=== PATIENT | female | born 1970 | race Caucasian/White ===

== ENCOUNTER 2017-01-06 15:09 | Emergency (ER) | payer MEDICARE ==
[2013-04-30 09:34] VITALS: BMI 36.3
[~2017-01-06 15:09] MED LIST: DUONEB 2.5-0.5 M3 ML UPD; DURAGESIC1 PATCH .1; FLEXERIL10 MG PO; LISINOPRIL10 MG GT; MOBIC7.5 MG PO; NEURONTIN 300300 MG PO; NORCO 10/325 TA1 TA1 PO; PROZAC40 MG PO; SEROQUEL25 MG PO; SYMBICORT 16010.2 GM INH; VALIUM 2 MG TAB2 MG; VENTOLIN HFA18 GM INH; VESICARE10 MG PO; WELLBUTRIN75 MG PO
[2017-01-06 16:30] LABS: BASOPHILS 0.3 % (0-2); EOSINOPHILS 3.7 % (0-7); HEMATOCRIT 41.5 % (36.0-48.0); HEMOGLOBIN 13.4 g/dL (12-16); IMMATURE GRANULOCYTES 0.2 % (0-5); LYMPHOCYTES 31.2 % (15-50); MCH 28.9 pg (26.0-34.0); MCHC 32.3 g/dL (31.0-37.0); MCV 89.4 fL (80.0-100.0); MEAN PLATELET VOLUME 11.1 fL (7.4-10.4); MONOCYTES 5.1 % (2-11); NEUTROPHILS 59.5 % (40-80); PLATELET COUNT 370 10x3/uL (130-400); RBC 4.64 10x6/uL (4.00-5.40); RDW 13.3 % (11.5-14.5); WBC 8.8 10x3/uL (4.8-10.8)
[2017-01-06 16:37] LABS: HCG URINE NEGATIVE (NEGATIVE)
[2017-01-06 16:44] LABS: ALBUMIN 3.5 g/dL (3.4-5.0); BILIRUBIN - TOTAL 0.33 mg/dL (0.2-1.3); CALCIUM 9.3 mg/dL (8.5-10.1); CARBON DIOXIDE 31.8 mmol/L (21.0-32.0); POTASSIUM - SERUM 3.8 mmol/L (3.5-5.1); PROTEIN - SERUM 7.6 g/dL (6.4-8.2)
[2017-01-06 16:46] LABS: APPEARANCE CLEAR (CLEAR); BILIRUBIN NEGATIVE (NEGATIVE); COLOR YELLOW (YELLOW); GLUCOSE NEGATIVE (NEGATIVE); KETONE NEGATIVE (NEGATIVE); LEUKOCYTE ESTERASE TRACE (NEGATIVE); NITRITE NEGATIVE (NEGATIVE); PROTEIN NEGATIVE (NEGATIVE); SPECIFIC GRAVITY 1.015 (1.005-1.020); UROBILINOGEN NORMAL (NORMAL)
[2017-01-06 16:47] LABS: BACTERIA FEW /hpf (NONE SEEN); EPITHELIAL CELLS 0-5 /hpf (0-5); MUCUS <1+ /lpf (NONE SEEN); RED CELLS - URINE NONE SEEN /hpf (0-5); WHITE CELLS - URINE 0-5 /hpf (0-5)
== END 2017-01-06 19:30 | disposition home or self-care (01) ==
LOC: D.ER 15:09
PROVIDERS: Nurse Practitioner Family
DX: R10.9 Unspecified abdominal pain (principal); R11.10 Vomiting, unspecified; K58.9 Irritable bowel syndrome, unspecified; F17.200 Nicotine dependence, unspecified, uncomplicated; J45.909 Unspecified asthma, uncomplicated; G60.0 Hereditary motor and sensory neuropathy; J44.9 Chronic obstructive pulmonary disease, unspecified; K21.9 Gastro-esophageal reflux disease without esophagitis

== ENCOUNTER 2017-04-06 11:51 | Emergency (ER) | payer MEDICARE ==
[2013-04-30 09:34] VITALS: BMI 36.3
== END 2017-04-06 14:35 | disposition home or self-care (01) ==
LOC: D.ER 11:51
DX: S69.91XA Unspecified injury of right wrist, hand and finger(s), initial encounter (principal); W19.XXXA Unspecified fall, initial encounter; Y93.89 Activity, other specified; Y92.019 Unspecified place in single-family (private) house as the place of occurrence of the external cause; J45.909 Unspecified asthma, uncomplicated; G60.0 Hereditary motor and sensory neuropathy; J44.9 Chronic obstructive pulmonary disease, unspecified; K21.9 Gastro-esophageal reflux disease without esophagitis; F17.200 Nicotine dependence, unspecified, uncomplicated

== ENCOUNTER 2019-07-17 13:39 | Emergency (ER) | payer MEDICARE ==
[~2019-07-17] VITALS: Ht 154.9 cm; Wt 68.2 kg
[2019-07-17 14:04] VITALS: BP 151/82; Ht 154.9 cm; Wt 68.2 kg
[2019-07-17] MEDS ORDERED: ULTRAM50 MG PO (15:47)
== END 2019-07-17 17:00 | disposition home or self-care (01) ==
LOC: D.ER 13:39
DX: S93.401A Sprain of unspecified ligament of right ankle, initial encounter (principal); X58.XXXA Exposure to other specified factors, initial encounter

== ENCOUNTER 2021-01-15 15:08 | Emergency (ER) | payer OTHER, MEDICARE ==
[~2021-01-15] VITALS: Ht 154.9 cm; Wt 75.0 kg
[~2021-01-15 15:08] MED LIST changes: +ULTRAM50 MG PO
[2021-01-15 15:10] VITALS: Ht 154.9 cm; Wt 75.0 kg
[2021-01-15 16:47] VITALS: BP 157/72
[2021-01-15] MEDS ORDERED: HYDROCODON-ACE1 EA10 PO (17:23)
== END 2021-01-15 17:58 | disposition home or self-care (01) ==
LOC: D.ER 15:08
DX: S82.401A Unspecified fracture of shaft of right fibula, initial encounter for closed fracture (principal); N76.0 Acute vaginitis; I10 Essential (primary) hypertension; G80.9 Cerebral palsy, unspecified; Y09 Assault by unspecified means

== ENCOUNTER 2021-03-18 10:42 | Emergency (ER) | payer MEDICARE, MEDICAID ==
[~2021-03-18] VITALS: Ht 154.9 cm; Wt 100.0 kg
[~2021-03-18 10:42] MED LIST changes: +HYDROCODON-ACE1 EA10 PO
[2021-03-18 10:48] VITALS: Ht 154.9 cm; Wt 100.0 kg
[2021-03-18 11:02] LABS: BASOPHILS 1.1 % (0-2); EOSINOPHILS 30.4 % (0-7); HEMATOCRIT 38.6 % (36.0-48.0); HEMOGLOBIN 12.9 g/dL (12-16); LYMPHOCYTES 22.1 % (15-50); MCH 28.8 pg (26.0-34.0); MCHC 33.5 g/dL (31.0-37.0); MCV 85.9 fL (80.0-100.0); MEAN PLATELET VOLUME 8.5 fL (7.4-10.4); MONOCYTES 4.6 % (2-11); NEUTROPHILS 41.8 % (40-80); PLATELET COUNT 357 10x3/uL (130-400); RBC 4.49 10x6/uL (4.00-5.40); RDW 13.1 % (11.5-14.5); WBC 9.3 10x3/uL (4.8-10.8)
[2021-03-18 11:16] LABS: CALC OSMOLALITY 283 mosm/kg (275-300); CALCIUM 9.1 mg/dL (8.5-10.1); CARBON DIOXIDE 28.1 mmol/L (21.0-32.0); CHLORIDE - SERUM 105 mmol/L (98-107); CREATININE - SERUM 0.7 mg/dL (0.6-1.3); GLUCOSE 96 mg/dL (74-106); POTASSIUM - SERUM 3.3 mmol/L (3.5-5.1); SODIUM 141 mmol/L (136-145); UREA NITROGEN 20 mg/dL (7-18); eGFR NON AFRICAN AMERICAN > 90 mL/min (90-120)
[2021-03-18 11:20] LABS: SARS-CoV-2 ANTIGEN NEGATIVE- SARS-COV-2 (NEGATIVE)
[2021-03-18 11:22] LABS: ALBUMIN 3.2 g/dL (3.4-5.0); ALKALINE PHOSPHATASE 111 U/L (30-120); ALT (SGPT) 20 U/L (10-68); BILIRUBIN - TOTAL 0.34 mg/dL (0.2-1.3); MAGNESIUM - SERUM 2.2 mg/dL (1.8-2.4); PROTEIN - SERUM 6.7 g/dL (6.4-8.2)
[2021-03-18 11:38] LABS: ACETAMINOPHEN < 10.0 ug/mL (10.0-30.0)
--- NOTE | 2021-03-18 11:39 | NUR ---
DR LUNA NOTIFIED AND REVIEWED PATIENT'S BEHAVIOR AND ASSESSMENT. PT IS HIGH RISK. SITTER ORDERED AND AT BEDSIDE. PT REFUSES TO COMPLETE SAFETY PLAN. STATES THERE ISN'T A BETTER PLAN THAN HER GOING TO SLEEP AND NEVER WAKING UP. RESOURCES GIVEN AND SHE VERBALIZES UNDERSTANDING BUT STATES SHE DIDN'T NEED IT.
[2021-03-18 11:46] LABS: UDS - AMPHET POSITIVE QUAL (NEGATIVE); UDS - BARB NEGATIVE QUAL (NEGATIVE); UDS - BENZO NEGATIVE QUAL (NEGATIVE); UDS - COCAINE NEGATIVE QUAL (NEGATIVE); UDS - OPIATE NEGATIVE QUAL (NEGATIVE); UDS - PCP NEGATIVE QUAL (NEGATIVE); UDS - THC NEGATIVE QUAL (NEGATIVE)
[2021-03-18 11:56] LABS: BACTERIA MOD HPF (<MOD); BILIRUBIN NEGATIVE (NEGATIVE); KETONE NEGATIVE mg/dL (< 1+); NITRITE NEGATIVE (NEGATIVE); SQUAMOUS EPITHELIAL 4 HPF (0-4); UROBILINOGEN 2 mg/dL (< 2); WHITE CELLS - URINE 5 HPF (0-4)
[2021-03-18] MEDS ORDERED: ZANAFLEX4 MG PO (13:55)
[2021-03-18] MEDS ORDERED: CELEBREX 100 M100 MG PO (13:55)
[2021-03-18] MEDS ORDERED: IBUPROFEN800 MG PO (13:56)
[2021-03-18] MEDS ORDERED: NYSTATIN100000 UN4 PO (13:56)
[2021-03-18 16:44] VITALS: BP 142/78
== END 2021-03-18 16:47 | disposition home or self-care (01) ==
LOC: D.ER 10:42
PROVIDERS: Family Medicine
DX: R45.851 Suicidal ideations (principal); F15.10 Other stimulant abuse, uncomplicated; N39.0 Urinary tract infection, site not specified; F32.9 Major depressive disorder, single episode, unspecified; I10 Essential (primary) hypertension; Z72.0 Tobacco use